=== PATIENT | female | born 1985 | race African-American/Black ===

== ENCOUNTER → 2017-02-12 | Emergency (ER) | payer MEDICAID | END | disposition left against medical advice (07) | LOC: ER 02:33 | DX: T14.8 Other injury of unspecified body region (principal); Z53.21 Procedure and treatment not carried out due to patient leaving prior to being seen by health care provider; W57.XXXA Bitten or stung by nonvenomous insect and other nonvenomous arthropods, initial encounter; Y93.9 Activity, unspecified; Y92.9 Unspecified place or not applicable; Y99.9 Unspecified external cause status ==

== ENCOUNTER 2017-03-19 18:08 | Emergency (ER) | payer MEDICAID ==
[~2017-03-19] VITALS: Ht 160 cm; Wt 99.8 kg
[2017-03-19 18:48] VITALS: BP 135/86
== END 2017-03-19 19:09 | disposition home or self-care (01) ==
LOC: ER 18:12
DX: L42 Pityriasis rosea (principal); I10 Essential (primary) hypertension; Z88.0 Allergy status to penicillin; Z88.6 Allergy status to analgesic agent

== ENCOUNTER 2017-03-21 19:59 | Emergency (ER) | payer MEDICAID | END 2017-03-21 20:21 | disposition left against medical advice (07) | LOC: ER 20:03 | DX: T78.40XA Allergy, unspecified, initial encounter (principal); Z53.21 Procedure and treatment not carried out due to patient leaving prior to being seen by health care provider ==